=== PATIENT | male | born 1975 | race Caucasian/White ===

== ENCOUNTER 2020-06-14 13:52 | Inpatient (IN) | payer BC, OTHER ==
[~2020-06-14] VITALS: Ht 188 cm; Wt 129.3 kg
[2020-06-14 13:58] VITALS: BP 126/78
[2020-06-14 15:13] LABS: HEMATOCRIT 23.4 % (42.0-52.0); HEMOGLOBIN 7.3 gm/dL (14.0-18.0); MCH 25.8 pg (26.0-34.0); MCHC 31.3 g/dL (28.0-37.0); MCV 82.6 fL (80.0-100.0); RBC 2.84 mil/uL (4.50-6.00); RDW 16.6 % (10.5-14.5); WBC 5.2 thou/uL (4.0-11.0)
[2020-06-14 15:15] LABS: CALCIUM 8.4 mg/dL (8.5-10.1); POTASSIUM 3.7 mmol/L (3.5-5.1)
[2020-06-14 15:21] LABS: ALBUMIN 3.7 g/dL (3.4-5.0); DIRECT BILIRUBIN 0.2 mg/dL (<0.1-0.2); TOTAL BILIRUBIN 0.9 mg/dL (0.2-1.0); TOTAL PROTEIN 6.2 g/dL (6.4-8.2)
[2020-06-14 15:24] LABS: APTT 27.6 Seconds (24.5-32.8); INR 1.1; PROTIME 11.1 Seconds (9.3-11.4)
[2020-06-14] MEDS ORDERED: VENLAFAXINE HC150 M1 PO (16:11)
[2020-06-14] MEDS ORDERED: PROTONIX40 M2 PO (16:11)
[2020-06-14 16:59] VITALS: BP 118/64
[2020-06-14 17:00] LABS: HEMATOCRIT 21.1 % (42.0-52.0); HEMOGLOBIN 6.7 gm/dL (14.0-18.0)
[2020-06-14 17:45] VITALS: BP 125/72
--- NOTE | 2020-06-14 19:20 | NUR ---
Received pt from the ER at 6pm, was advised by the ER that all consults have been called and VS have been stable. Order for blood trasnfusion in but not complete (type of blood) by the MD, thus ER not starting the blood. Pt is steady on his gait but placed on fall precautions d/t low Hgb. Admission packet and educatiopn done and IV fluids hung. All consents signed and placed in the chart. Pt is to be NPO as per order, pt aware. POC followed with no signs or verbalizations of distress noted. Blood back called for the availabiliy ofthe blood in the bank past 6:30 pm. Endorsed to the night nurse. Designated visitor placed in the system, end educated on the rules of such.
[2020-06-14] MEDS ORDERED: IRON18 M1 PO (19:29)
[2020-06-14 20:26] VITALS: BP 106/57; BP 112/54
[2020-06-14 20:45] VITALS: BP 108/53
[2020-06-14 23:00] VITALS: BP 112/54
--- NOTE | 2020-06-15 03:03 | NUR ---
ASSUMED CARE OF PT AT 1900HRS. PT AOX4 AND LETS NEEDS BE KNOWN. FALL PRECAUTION IN PLACE FOR SAFETY. PT DENIED SIGNIFICANT PAIN, NAUSEA OR SOA. PT WAS TRANSFUSED WITH 1 UNIT PRBC THIS SHIFT. NO REACTIONS NOTED. PROTONIX DRIP CONTINUED. PT IS NSR ON TELE. PT WAS ABLE TO GET COMFORTABLE AND SLEEP PART OF THE SHIFT. VSS AND NO S/S OF ACUTE DISTRESS. PT USED CPAP AT HS. WILL CONTINUE TO MONITOR.
[2020-06-15 05:02] VITALS: BP 107/55
[2020-06-15 05:36] LABS: HEMATOCRIT 22.9 % (42.0-52.0); HEMOGLOBIN 7.3 gm/dL (14.0-18.0)
[2020-06-15 08:35] VITALS: BP 122/69
--- NOTE | 2020-06-15 15:55 | NUR ---
Assumed pt care this am, blood sugar checks done with no insulin ordered, pt is on the low side and tends to be hypoglycemic early in the am. 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 FC in place draining yellow urine with sediments. Refused wound care and dressing change, wanted to have IV removed. POC followed.
[2020-06-15 16:35] LABS: HEMATOCRIT 23.1 % (42.0-52.0); HEMOGLOBIN 7.3 gm/dL (14.0-18.0)
[2020-06-15 18:01] VITALS: BP 121/69
--- NOTE | 2020-06-15 19:32 | NUR ---
Assumed pt care this am, VS stable, pt took a shower. Had 2 bloody (bright red stools) through out the shift. MD informed, labs ordered. POC followed, pain on the left lower abdomen noted MD informed. Records from [facility] requested. Refused blood sugar checks since pt is not diabetic. Pt is to go down for a CT scan, was informed by CT they cannot come up to get the pt. 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 Pt tokk a complete bath today on his own and is able to ambulate with a steady gait in the room. was at the bedside, awaiting for oncology consult. Reap Hgb remaints at 7.3.
[2020-06-15 20:22] VITALS: BP 123/58
--- NOTE | 2020-06-16 03:15 | NUR ---
patient aox4 makes needs known. patient had no bowel movement this shift. no bleeding noted this shift. patient refused c pap tonight. patient denied weakness this shift. patient is up at simon. patient ambulates to the bathroom with steady gaits. patient in bed asleep at this time breathing regular and unlaboured.
[2020-06-16 09:00] VITALS: BP 123/77
[2020-06-16 09:43] LABS: HEMATOCRIT 22.7 % (42.0-52.0); HEMOGLOBIN 7.1 gm/dL (14.0-18.0)
[2020-06-16 09:52] LABS: ABSOLUTE RETIC COUNT 0.1693 10^6/uL; OBSERVED RETIC COUNT 6.25 % (0.6-2.6)
[2020-06-16 10:05] LABS: % SATURATION 4 % (20-39); IRON 12 ug/dL (65-175); TIBC 303 ug/dL (250-450)
[2020-06-16 10:39] LABS: FOLIC ACID 16.8 ng/mL (8.6-58.9)
[2020-06-16 11:23] VITALS: BP 122/78; BP 137/86
[2020-06-16 11:30] VITALS: BP 122/77
[2020-06-16 14:00] VITALS: BP 136/88
[2020-06-16 16:36] VITALS: BP 136/88
--- NOTE | 2020-06-16 18:49 | NUR ---
ASSUMED CARE @ 0700 06/16/20, PT ASSESSMENTS AND VSS COMPLETE PER [facility] ORDERS. PT GIVEN ONE UNIT OF PRBC FOR HGB OF 7.1, NO COMPLICATIONS NOTED. DR FELICIANO VERBALIZES DISCHARGE PENDING GI SIGNS OFF. DR MILLS AND [employer] TO BEDSIDE, NO NEW ORDERS RECIEVED. DISCHARGE ORDERS PLACED, DISCHARGE EDUCATION GIVEN. PT OFF THE UNIT 1825, NO COMPLICATIONS NOTED.
--- NOTE | 2020-06-17 08:03 | HC ---
[facility] [place] [address] CONSULTATION Name: ELADIO MCCAIN Room #: 459-P [facility] IN M.R.#: [id number] Admission: 06/14/20 Attend Phys: Abril Rm MD Discharge: 06/16/20 Date of : 77 Report #: [id number] THIS REPORT FOR: cc: Merry Christianson MD,Merry Alonso,Abelardo Seymour MD ~ CC: Abril Alonso DATE OF SERVICE: 06/16/2020 REQUESTING PHYSICIAN: Abril Rm MD REASON FOR CONSULTATION: Splenomegaly. HISTORY OF PRESENT ILLNESS: The patient is a 45-year-old male who I was going to be seeing in the hospital. He recently had been evaluated for a GI bleed at [facility]. 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 I did not see ____ I was looking at the chart through [facility], but the patient seems reliable and he says Dr. Christianson told him he may have this. Note that this is more of a vascular abnormality, is not a hematologic problem per se, it is only hematologic in the sense that people may become iron deficient and need either iron or B12 or folate optimized. The patient had normal coags here. His liver functions were essentially normal. Note that he had a CAT scan on 03/20/2020 at [facility] that found a spleen of 15.7 cm, on the CAT scan done yesterday at 16 cm. The patient has no unexplained fevers, chills, sweats, weight change. Even though this is above the 95th percentile for his height, since he is without symptoms, there are no other lesions, I am not sure if any other evaluation at this time is warranted such as a bone marrow biopsy, though I did mention this with the patient. PAST MEDICAL HISTORY: Notable for the multiple GI bleeds recently followed by Dr. Jelani Christianson and obstructive sleep apnea. Also may have a little bit of a mood disorder. History of hernia x 2. History of ____ syndrome. SOCIAL HISTORY: The patient works at a [employer] if I understand correctly. He is originally from [place]. Nonsmoker, no alcohol, no street drugs. [facility] [address] [place] [address] CONSULTATION Name: ELADIO MCCAIN Room #: 459-P [facility] IN .R.#: [id number] Admission: 06/14/20 Attend Phys: Abril Rm MD Discharge: 06/16/20 Date of : 77 Report #: [id number] FAMILY HISTORY: Someone had lung cancer and brain cancer and heart disease. PHYSICAL EXAMINATION: GENERAL: The patient appears his stated age. VITAL SIGNS: Height is 6 feet 2 inches, 188 cm; weight 285 pounds, 129 kilograms. Blood pressure is 123/58, O2 sat 96%, pulse 99, temperature 98.6. MOOD: He is alert and pleasant. Speech is normal. NEUROLOGIC: Moving extremities well. LYMPHATICS: No enlarged lymph nodes. HEART: Regular rate. LUNGS: Symmetric. No rhonchi, wheezes or rales. ABDOMEN: No masses. No definite splenomegaly. EXTREMITIES: Without clubbing, cyanosis or edema. LABORATORY DATA: Here in the hospital notable for a BUN of 15, creatinine of 1.0, total bilirubin 0.9. Transaminases normal to slightly low. Albumin 3.7. Iron panel pending. Coags had an INR of 1.1, APTT at 27.6. White count here was 5.2 with normal differential, hemoglobin was 7.3 today; on admit, it was 7.3, then dropped to 6.7; MCV 82.6, RDW is 16.6, platelets 270. Retic count pending. Ferritin, folate, vitamin B12 pending. ASSESSMENT AND PLAN: 1. Splenomegaly without other symptoms, would suggest just observation at this time, could repeat scan in 6 months to see if progressive. Would also look out for fevers, chills and unexplained sweats. He says he has had recent EGD and colonoscopy, I doubt this is underlying liver disease. The patient has been seen by GI. 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 We will defer to GI evaluation to look for bleeding lesions. 3. Obstructive sleep apnea, CPAP. 4. Mood, venlafaxine will be available if questions arise. <ELECTRONICALLY SIGNED> By: Abelardo Alonso MD 06/17/20 [id number] [id number] Abelardo Alonso MD /nt
[2020-06-17 13:08] LABS: ANA INTERPRETATION Negative (Negative)
== END 2020-06-16 18:00 | disposition home or self-care (01) | DRG 378 ==
LOC: ER 13:52 → EROBS 16:09 → 4W 16:09
PROVIDERS: Emergency Medicine; Internal Medicine Hematology & Oncology; ADMIT Hospitalist; ATTEND Hospitalist
PROC: 30233N1 Transfusion of Nonautologous Red Blood Cells into Peripheral Vein, Percutaneous Approach (ICD-10-PCS; principal; 2020-06-14)
DX: K92.1 Melena (principal); D62 Acute posthemorrhagic anemia; R16.1 Splenomegaly, not elsewhere classified; G47.33 Obstructive sleep apnea (adult) (pediatric); F41.9 Anxiety disorder, unspecified; F32.9 Major depressive disorder, single episode, unspecified; Z79.899 Other long term (current) drug therapy; Z99.81 Dependence on supplemental oxygen
CPT/HCPCS: 10045